=== PATIENT | female | born 1965 | race Caucasian/White ===

== ENCOUNTER 2017-05-12 14:21 | Emergency (ER) | payer MEDICAID ==
[~2017-05-12] VITALS: Ht 160 cm; Wt 93.5 kg
[2017-05-12 14:23] VITALS: Ht 160 cm; Wt 93.5 kg
[2017-05-12] MEDS ORDERED: ONDANSETRON 4 MG INJ IV STA (15:00)
[2017-05-12] MEDS ORDERED: morphine 4 MG/ML VIAL IV STA (15:00)
[2017-05-12] MEDS ORDERED: KETOROLAC 15 MG INJ IV STA (15:00)
[2017-05-12] MEDS ORDERED: SOD CHLORIDE 0.9% 1,000 ML IV STA (15:00)
--- NOTE | 2017-05-12 15:00 | ERD ---
ER Documentation Chief Complaint Date/Time DATE: 05/12/17 TIME: 14:59 Chief Complaint RT FLANK PAIN X 2 DAYS HPI 51-year-old female diabetic, hypertensive, dyslipidemic ambulatory to the ED complaining of acute onset of moderate to severe, sharp, right flank pain that radiates to the right lower quadrant. Pain began acutely 2 days ago and was unprovoked by trauma or lifting. Denies abdominal pain, nausea, vomiting, diarrhea or constipation. No dysuria, polyuria, hematuria or flank pain. Denies vaginal discharge or bleeding. No chest pain, palpitations or shortness of breath. No relieving or exacerbating factors. No fevers or chills. ROS All systems reviewed and are negative except as per history of present illness. Allergies Allergies: Coded Allergies: No Known Drug Allergy (Verified Allergy, Unknown, 10/03/07) PMhx/Soc Reviewed in chart. As per HPI. History of Surgery: Yes (Cholecystectomy) Anesthesia Reaction: No Hx Neurological Disorder: No Hx Respiratory Disorders: No Hx Cardiac Disorders: Yes (Hypertension) Hx Psychiatric Problems: No Hx Miscellaneous Medical Probl: Yes (Diabetes mellitus type II, hyperlipidemia) Hx Alcohol Use: No Hx Substance Use: No Hx Tobacco Use: No Smoking Status: Never smoker FmHx Diabetes but no stroke or cancer. Physical Exam Vitals Vital Signs Date Time Temp Pulse Resp B/P Pulse Ox O2 Delivery O2 Flow Rate FiO2 05/12/17 17:14 74 18 129/67 99 Room Air 05/12/17 14:23 99.3 87 18 183/87 98 Physical Exam Const: , Moderate distress due to pain. Head: Atraumatic Eyes: Normal Conjunctiva. Anicteric. ENT: Normal External Ears, Nose and Mouth. Because membranes are moist. Neck: Full range of motion. Nontender. Resp: Breath sounds are equal and clear to auscultation bilaterally. No rales rhonchi or wheezes. Cardio: Regular rate and rhythm, no murmurs Abd: Soft, obese, non tender, non distended. Normal bowel sounds Skin: No petechiae or rashes Back: No midline or CVA tenderness. Ext: No cyanosis, or edema Neur: Awake and alert. No focal deficit observed. Psych: Cooperative. Patient does not appear anxious or depressed. Result Diagram: 05/12/17 1500 05/12/17 1500 Results 24 hrs Laboratory Tests Test 05/12/17 15:00 05/12/17 15:05 05/12/17 17:11 White Blood Count 7.110^3/ul Red Blood Count 4.6110^6/ul Hemoglobin 13.1g/dl Hematocrit 38.8% Mean Corpuscular Volume 84.2fl Mean Corpuscular Hemoglobin 28.4pg Mean Corpuscular Hemoglobin Concent 33.8g/dl Red Cell Distribution Width 12.7% Platelet Count 76590^3/UL Mean Platelet Volume 10.0fl Neutrophils % 54.4% Lymphocytes % 36.8% Monocytes % 5.6% Eosinophils % 2.3% Basophils % 0.6% Nucleated Red Blood Cells % 0.0/100WBC Neutrophils # 3.910^3/ul Lymphocytes # 2.610^3/ul Monocytes # 0.410^3/ul Eosinophils # 0.210^3/ul Basophils # 0.010^3/ul Nucleated Red Blood Cells # 0.010^3/ul Urine Color STRAW Urine Clarity CLEAR Urine pH 7.0 Urine Specific [place] 1.011 Urine Ketones NEGATIVEmg/dL Urine Nitrite NEGATIVEmg/dL Urine Bilirubin NEGATIVEmg/dL Urine Urobilinogen NEGATIVEmg/dL Urine Leukocyte Esterase 1+George/ul Urine Microscopic RBC 1/HPF Urine Microscopic WBC 4/HPF Urine Hemoglobin NEGATIVEmg/dL Urine Glucose 3+mg/dL Urine Total Protein NEGATIVEmg/dl Sodium Level 141mmol/L Potassium Level 3.9mmol/L Chloride Level 104mmol/L Carbon Dioxide Level 28mmol/L Anion Gap 13 Blood Urea Nitrogen 9mg/dl Creatinine 0.60mg/dl Glucose Level 367mg/dl Calcium Level 9.6mg/dl Total Bilirubin 0.2mg/dl Direct Bilirubin 0.00mg/dl Indirect Bilirubin 0.2mg/dl Aspartate Amino Transf (AST/SGOT) 26IU/L Alanine Aminotransferase (ALT/SGPT) 45IU/L Alkaline Phosphatase 117IU/L Total Protein 8.1g/dl Albumin 4.2g/dl Globulin 3.90g/dl Albumin/Globulin Ratio 1.07 Lipase 252U/L Bedside Glucose 346mg/dL 229mg/dL Current Medications Medications (Trade) Dose Ordered Sig/Deisi Route PRN Reason Start Time Stop Time Status Last Admin Dose Admin Sodium Chloride (NS) 1,000 ml @ 1,000 mls/hr Q1H STAT IV 05/12/17 15:00 05/12/17 15:59 DC 05/12/17 15:17 Morphine Sulfate (morphine) 4 mg ONCE STAT IV 05/12/17 15:00 05/12/17 15:03 DC 05/12/17 15:16 Ondansetron HCl (Zofran Inj) 4 mg ONCE STAT IV 05/12/17 15:00 05/12/17 15:03 DC 05/12/17 15:16 Ketorolac Tromethamine (Toradol) 15 mg ONCE STAT IV 05/12/17 15:00 05/12/17 15:03 DC 05/12/17 15:15 PROCEDURE: CT Abdomen and Pelvis without contrast. CLINICAL INDICATION: Abdominal pain. Right flank pain. TECHNIQUE: CT scan of the abdomen and pelvis without contrast was performed. The patient was scanned without intravenous contrast. Coronal and sagittal reformatted images were obtained from the axial source images. Use of iterative reconstruction technique was employed. Images were reviewed on a high- resolution PACS workstation. images. The calculated radiation dose measures 1251.98 mGy centimeters. The CTDI measures 22.18 mGy. One or more of the following dose reduction techniques were used: - Automated exposure control. - Adjustment of the mA and/or kV according to patient size . - Use of iterative reconstruction technique. Images were reviewed on a high-resolution PACS workstation COMPARISON: None. FINDINGS: CT abdomen: The lung bases are clear. The heart size is normal, without pericardial thickening or effusion. The liver is mildly enlarged and demonstrates decreased density without focal mass or intrahepatic biliary dilatation. The spleen is normal in size and homogeneous in density. The stomach is partially collapsed, but is grossly unremarkable. The pancreas as visualized is normal. The gallbladder is absent. The biliary tree otherwise unremarkable and there is no evidence for biliary dilatation. The adrenal glands are symmetric and normal. The kidneys are symmetrically unremarkable as well. No renal calculus or obstructive uropathy or mass lesion is seen. The aorta is of normal caliber. There is no retroperitoneal lymphadenopathy. The loyda hepatis region is clear. The bowel and mesentery, as visualized, are equally unremarkable. CT pelvis: The small bowel loops situated within the pelvis are unremarkable. The pelvic organs are normal. The pelvic sidewalls and inguinal regions are clear. The sigmoid colon and rectum are not thickened or dilated. No findings are seen to suggest acute appendicitis.. No mass, lymphadenopathy, or free fluid is seen. No acute inflammation is seen. An IUD is present. The anterior limb of the intrauterine device is near the myometrial serosal surface suggesting the possibility of perforation. There is no surrounding inflammation or abnormal fluid collection in this region. There is a metallic clip near the left ovary, likely in prior intervention or dropped clip from the cholecystectomy. The surrounding osseous structures are remarkable for degenerative spondylosis of the spine. No osteolytic or osteoblastic lesion is detected. IMPRESSION: 1. No evidence for nephroureterolithiasis. 2. Status post cholecystectomy noting a few dropped a clips. 3. Presence of an IUD with suggestion of part of the anterior limb of the device seen either within myometrium or partially perforating the serosal surface, to be correlated clinically. No abnormal inflammation or fluid collection is seen in this region. 4. Hepatic steatosis. 5. No evidence for small bowel obstruction. RPTAT: QQ .José Miguel House MD, MD Date Time Electronically viewed and signed by .José Miguel House MD, MD on 05/12/2017 15:54 .d/ Procedures/MDM DOCUMENTS REVIEWED: ED nurse prior records. ED COURSE: Normal saline 1 L. Morphine 4 mg, ketorolac 15 mg and Zofran 4 mg IV. REEXAMINATION/REEVALUATION: Time: 16:45. Doing well. Abdomen soft nontender. Pain resolved. [employer]-year-old female diabetic, hypertensive, dyslipidemic, status post remote cholecystectomy ambulatory to the ED complaining of a history of right flank pain. No evidence of urinary tract infection or pyelonephritis. Noncontrast CT of the abdomen and pelvis performed to rule multiple potential etiologies including but not limited to abdominal aortic aneurysm, obstructive uropathy and bowel obstruction. No skin changes or signs of herpes zoster infection. Abdominal exam is benign without rebound, guarding or signs of an acute intra-abdominal process or peritonitis. It is related to a malpositioned IUD which is incidentally seen on CT scan. Pain resolved with intravenous hydration, analgesics and antiemetics. Mild hyperglycemia without anion gap or criteria for DKA. After IV hydration repeat Accu-Chek is 229 mg/dL. Poorly controlled hypertension likely exacerbated by pain but appears stable without evidence of hypertension emergency or urgency. Repeat blood pressure prior to discharge is 129/64. The patient was counseled about the risks of hypertension and urged to pursue outpatient monitoring and therapy within a week with their primary care physician. In the absence of signs of serious disease patient is stable for discharge with precautionary instructions, appropriate analgesics and outpatient follow-up as counseled. She understands that the etiology of symptoms is not established and urgent outpatient follow-up with the next 24 hours or return to the ED for any worsening symptoms is mandatory. Counseled patient regarding diagnostic workup, diagnosis and need for followup. Understands need for urgent outpatient follow-up within 24 hours or to return to ED if symptoms recur, worsen or any other concerns. Departure Diagnosis: Primary Impression: Flank pain Additional Impressions: Diabetes mellitus out of control Diabetes mellitus type: type 2 Diabetes mellitus complication status: without complication Diabetes mellitus skilled nursing insulin use: unspecified skilled nursing insulin use status Qualified Code: E11.65 - Uncontrolled diabetes mellitus type 2 without complications, unspecified skilled nursing insulin use status Poorly-controlled hypertension Condition: Stable (Improved.) MALIK PRITCHARD MD May 12, 2017 15:00
[2017-05-12 15:16] LABS: BASOPHILS % 0.6 % (0.0-2.0); EOSINOPHILS # 0.2 10^3/ul (0.0-0.5); EOSINOPHILS % 2.3 % (0.0-7.0); HEMATOCRIT 38.8 % (37.0-47.0); HEMOGLOBIN 13.1 g/dl (12.0-16.0); LYMPHOCYTES # 2.6 10^3/ul (0.8-2.9); LYMPHOCYTES % 36.8 % (15.0-51.0); MEAN CORPUSCULAR HEMOGLOBIN 28.4 pg (29.0-33.0); MEAN CORPUSCULAR HGB CONC 33.8 g/dl (32.0-37.0); MEAN CORPUSCULAR VOLUME 84.2 fl (82.0-101.0); MONOCYTE # 0.4 10^3/ul (0.3-0.9); MONOCYTES % 5.6 % (0.0-11.0); NEUTROPHIL # 3.9 10^3/ul (1.6-7.5); NEUTROPHILS % 54.4 % (39.0-77.0); PLATELET COUNT 218 10^3/UL (140-415); RED BLOOD COUNT 4.61 10^6/ul (4.20-5.40); RED CELL DISTRIBUTION WIDTH 12.7 % (11.5-14.5); WHITE BLOOD COUNT 7.1 10^3/ul (4.8-10.8)
[2017-05-12 15:26] LABS: ADD UMIC YES; UR ASCORBIC ACID NEGATIVE (NEGATIVE); UR BILIRUBIN (Dip) NEGATIVE (NEGATIVE); UR BLOOD (Dip) NEGATIVE (NEGATIVE); UR CLARITY CLEAR (CLEAR); UR COLOR STRAW (YELLOW); UR GLUCOSE (Dip) 3+ mg/dL (NEGATIVE); UR KETONES (Dip) NEGATIVE (NEGATIVE); UR LEUKOCYTE ESTERASE (Dip) 1+ Leu/ul (NEGATIVE); UR NITRITE (Dip) NEGATIVE (NEGATIVE); UR RBC 1 /HPF (0-5); UR SPECIFIC GRAVITY (Dip) 1.011 (1.003-1.030); UR TOTAL PROTEIN (Dip) NEGATIVE (NEGATIVE); UR UROBILINOGEN (Dip) NEGATIVE (NEGATIVE)
[2017-05-12 15:44] LABS: ALBUMIN 4.2 g/dl (3.3-4.9); ALBUMIN/GLOBULIN RATIO 1.07; BILIRUBIN,INDIRECT 0.2 mg/dl (0-1.1); BILIRUBIN,TOTAL 0.2 mg/dl (0.2-1.3); CALCIUM 9.6 mg/dl (8.4-10.2); CREATININE 0.6 mg/dl (0.44-1.00); POTASSIUM 3.9 mmol/L (3.5-5.1); TOTAL PROTEIN 8.1 g/dl (6.1-8.1)
--- NOTE | 2017-05-12 15:54 | RADRPT ---
PROCEDURE: CT Abdomen and Pelvis without contrast. CLINICAL INDICATION: Abdominal pain. Right flank pain. TECHNIQUE: CT scan of the abdomen and pelvis without contrast was performed. The patient was scann ed without intravenous contrast. Coronal and sagittal reformatted images were obtained from the axi al source images. Use of iterative reconstruction technique was employed. Images were reviewed on a high-resolution PACS workstation. images. The calculated radiation dose measures 1251.98 mGy centime ters. The CTDI measures 22.18 mGy. One or more of the following dose reduction techniques were used: - Automated exposure control. - Adjustment of the mA and/or kV according to patient size . - Use of iterative reconstruction technique. Images were reviewed on a high-resolution PACS workstation COMPARISON: None. FINDINGS: CT abdomen: The lung bases are clear. The heart size is normal, without pericardial thickening or effusion. Th e liver is mildly enlarged and demonstrates decreased density without focal mass or intrahepatic shawn iary dilatation. The spleen is normal in size and homogeneous in density. The stomach is partially collapsed, but is grossly unremarkable. The pancreas as visualized is normal. The gallbladder is absent. The biliary tree otherwise unremarkable and there is no evidence for biliary dilatation. T he adrenal glands are symmetric and normal. The kidneys are symmetrically unremarkable as well. No renal calculus or obstructive uropathy or mass lesion is seen. The aorta is of normal caliber. There is no retroperitoneal lymphadenopathy. The loyda hepatis reg ion is clear. The bowel and mesentery, as visualized, are equally unremarkable. CT pelvis: The small bowel loops situated within the pelvis are unremarkable. The pelvic organs are normal. T he pelvic sidewalls and inguinal regions are clear. The sigmoid colon and rectum are not thickened or dilated. No findings are seen to suggest acute appendicitis.. No mass, lymphadenopathy, or free fluid is seen. No acute inflammation is seen. An IUD is present. The anterior limb of the intraute rine device is near the myometrial serosal surface suggesting the possibility of perforation. There is no surrounding inflammation or abnormal fluid collection in this region. There is a metallic clip near the left ovary, likely in prior intervention or dropped clip from the cholecystectomy. The surrounding osseous structures are remarkable for degenerative spondylosis of the spine. No ost eolytic or osteoblastic lesion is detected. IMPRESSION: 1. No evidence for nephroureterolithiasis. 2. Status post cholecystectomy noting a few dropped a clips. 3. Presence of an IUD with suggestion of part of the anterior limb of the device seen either within myometrium or partially perforating the serosal surface, to be correlated clinically. No abnormal i nflammation or fluid collection is seen in this region. 4. Hepatic steatosis. 5. No evidence for small bowel obstruction. RPTAT: QQ .José Miguel House MD, MD Date Time Electronically viewed and signed by .José Miguel House MD, on 05/12/2017 15:54 .d/
[2017-05-12 17:14] VITALS: BP 129/67; PULSE 74; RESP 18
[2017-05-12] MEDS ORDERED: TRAM50TA2 PO (17:18)
== END 2017-05-12 17:26 | disposition home or self-care (01) ==
LOC: E/R 14:21
DX: E11.65 Type 2 diabetes mellitus with hyperglycemia (principal); I10 Essential (primary) hypertension; E66.9 Obesity, unspecified; Z68.36 Body mass index [BMI] 36.0-36.9, adult
CPT/HCPCS: 36415; 74176; 80053; 81001; 82962; 83690; 85025; 96374; 96375; J1885; J2270; J2405; J7030; Z7502